=== PATIENT | male | born 1945 | race African-American/Black ===

== ENCOUNTER → 2017-02-06 | Day surgery (SDC) | payer MEDICARE, BC ==
[~2017-02-06] VITALS: Ht 167.6 cm; Wt 88.5 kg
[~2017-02-06] MED LIST: ALPH0.1S EACH EYE; AMLO5TAB2 PO; BRIM0.155 EACH EYE; CARV12.52 PO; CHLORHEXIDINE GLUCONATE 2 % 1 PACK (2 CLOTHS) TOPICAL PRN; CIPR0.3S2 RIGHT EYE; DORZ2SOL EACH EYE; ECASA81 PO; EPINEPHrine HCL PF/SF (1:1000) 1 MG/ML AMP I-OCULAR ONE; EPINEPHrine-Lidocaine/BSS (PF/SF) 4-120 mg/16 mL OPTH SYR RIGHT EYE ONE; FURO20TA PO; HYALURONIDASE/LIDOCAINE/BUPIVACAINE 5 ML SYR RIGHT EYE ONE; INSULIN HUMAN REGULAR 1,000 UNITS/10 ML VIAL SQ PRN; KETO0.5S2 RIGHT EYE; LACTATED RINGER'S 1000 ML IV PRN; LANTINJ SQ; LATA0.002 EACH EYE; METOPROLOL TARTRATE 25 MG TAB PO PRN; MYCO500T PO; OCUVTAB4 PO; OXYC1TAB63 PO; PANT40TA3 PO; PLAV75TA29 PO; POVIDONE IODINE 5% (ANTISEPSIS KIT) 4 APPLICATIONS EACH NARE PRN; PRED-503 PO; PRED1SUS6 RIGHT EYE; PROPOFOL 200 MG/20 ML AMP ONE; SODIUM CHLORID 0.9% 500 ML IV PRN; TACR5 PO; TEMA30CA PO; TOBRAMYCIN/DEXAMETHASONE OPTH OINT 3.5 GM TUBE ONE; VISCOAT OPHT IRRIG SOLN 0.75 ML SYRINGE ONE
[2017-02-06 08:10] VITALS: PULSE 72
[2017-02-06] MEDS: CYCLOPENTOLATE HCL 1% OPHT SOLN 2 ML BTL RIGHT EYE SCH ×3 (08:18→08:28)
[2017-02-06] MEDS: TETRACAINE 0.5% OPTH SOLN 4 ML BTL RIGHT EYE SCH ×3 (08:18→08:28)
[2017-02-06] MEDS: TROPICAMIDE 1% OPHT SOLN 15 ML BTL RIGHT EYE SCH ×3 (08:18→08:28)
[2017-02-06] MEDS: PHENYLEPHRINE HCL 10% OPTH SOLN 5 ML BTL RIGHT EYE SCH ×3 (08:18→08:28)
[2017-02-06 08:27] VITALS: PULSE 68
[2017-02-06 09:43] VITALS: TEMP 97.8
--- NOTE | 2017-02-06 09:53 | PD.OP ---
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 He was prepped and draped in the usual sterile fashion for ophthalmic surgery. A wire lid speculum was placed in the right eye. A paracentesis incision was created at the 11 o'clock position on the limbus. Vision blue dye, epishugarcaine, and viscoelastic was injected into the anterior chamber. The main incision was created at the 8 o'clock position on the limbus with a 2.4 mm keratome. A continuous curvilinear capsulorrhexis was made on the anterior lens capsule. Hydrodissection was used to separate the lens from the capsule. Phacoemulsification was used to remove the lens nucleus material. Irrigation and aspiration was used to remove the remaining cortical material. The lens implant ([id number]) was placed in the capsular bag. Viscoelastic was removed with irrigation and aspiration. The incisions were irrigated and found to be watertight. Tobradex ointment, a patch , and shield were placed on the right eye. The patient was sent to PACU in stable condition. Idalmis Chavez MD Feb 06, 2017 09:53
[2017-02-06 10:08] VITALS: BP 116/71; PULSE 68; RESP 16; O2SAT 98
== END | disposition home or self-care (01) ==
LOC: PHSDC 07:08
PROVIDERS: ATTEND Ophthalmology
DX: H25.9 Unspecified age-related cataract (principal)
CPT/HCPCS: 00142; 66984; 82948; J0171; J7040; V2632